=== PATIENT | female | born 1990 | race Caucasian/White ===

== ENCOUNTER 2017-02-20 17:25 | Outpatient (CLI) | payer MEDICAID ==
[~2017-02-20] VITALS: Ht 157.5 cm; Wt 62.4 kg
[~2017-02-20 17:25] MED LIST: NO MEDS
[2017-02-20 17:30] VITALS: Ht 157.5 cm; Wt 62.4 kg
[2017-02-20 17:37] VITALS: BP 112/71; PULSE 109; RESP 18
[2017-02-20] MEDS ORDERED: PRENAT PO (17:46)
[2017-02-20] MEDS ORDERED: LACTATED RINGER'S 1,000 ML IV ONE (18:00)
[2017-02-20 18:14] LABS: ADD UMIC YES; UR BILIRUBIN (Dip) 1+ (NEGATIVE); UR BLOOD (Dip) TRACE (NEGATIVE); UR CLARITY CLOUDY (CLEAR); UR COLOR YELLOW (YELLOW); UR GLUCOSE (Dip) NEGATIVE (NEGATIVE); UR KETONES (Dip) NEGATIVE (NEGATIVE); UR LEUKOCYTE ESTERASE (Dip) 3+ (NEGATIVE); UR NITRITE (Dip) NEGATIVE (NEGATIVE); UR TOTAL PROTEIN (Dip) TRACE (NEGATIVE); UR UROBILINOGEN (Dip) 4.0 E.U./dL (0.1-1.0)
--- NOTE | 2017-02-20 18:28 | RADRPT ---
PROCEDURE: OB ultrasound for biophysical profile CLINICAL INDICATION: Decreased movement. TECHNIQUE: Multiple sonographic images of the pelvis were obtained. Transabdominal view of the gr avid uterus are available for review. The images were reviewed on a PACS workstation. COMPARISON: None FINDINGS: breathing movement = 2/2 tone = 2/2 motion = 2/2 Quantitative amniotic fluid volume = 2/2 HERBIE = 15.5 cm Single live intrauterine with cardiac activity at 148 beats per minute. There is a anterior placenta without previa. IMPRESSION: 1. Single living intrauterine gestation cephalic. 2. Biophysical profile = 06/04. 3. HERBIE = 15.5 cm. RPTAT: [facility] Physician Annika Date Time Electronically viewed and signed by Burak Flood Physician on 02/20/2017 18:27 /
[2017-02-20 19:06] LABS: ICTOTEST NEGATIVE (NEGATIVE)
[2017-02-20 19:10] LABS: UR SQUAMOUS EPITHELIAL CELL MANY; URINE RBCS 0-2 /HPF (0)
[2017-02-20 20:25] LABS: ADD UMIC YES; UR BILIRUBIN (Dip) 1+ (NEGATIVE); UR BLOOD (Dip) NEGATIVE (NEGATIVE); UR CLARITY CLEAR (CLEAR); UR COLOR YELLOW (YELLOW); UR GLUCOSE (Dip) NEGATIVE (NEGATIVE); UR KETONES (Dip) 40 (NEGATIVE); UR LEUKOCYTE ESTERASE (Dip) TRACE (NEGATIVE); UR NITRITE (Dip) NEGATIVE (NEGATIVE); UR TOTAL PROTEIN (Dip) NEGATIVE (NEGATIVE); UR UROBILINOGEN (Dip) 4.0 E.U./dL (0.1-1.0)
[2017-02-20 20:42] LABS: ICTOTEST POSITIVE (NEGATIVE)
[2017-02-20 20:44] LABS: UR SQUAMOUS EPITHELIAL CELL FEW; URINE RBCS NONE SEEN /HPF (0)
[2017-02-20 20:45] LABS: UR MUCUS OCCASIONAL
--- NOTE | 2017-02-20 22:18 | TRIAGE ---
OB Triage Datetime Report Generated by CPN: 02/20/2017 22:18 Datetime: 02/20/2017 21:43 Stage of : OB Triage Datetime: 02/20/2017 20:25 Stage of : OB Triage Datetime: 02/20/2017 19:40 Stage of : OB Triage Pain Assessment Pain Scale: 0 Pain Presence: None/Denies Datetime: 02/20/2017 19:15 Stage of : OB Triage Datetime: 02/20/2017 19:00 Labor Evaluation Frequency: 3-6 Monitor Mode: External Duration (sec)2399: 90-100 Quality: Mild Pattern: Normal: <= 5 Contractions in 10 Minutes Resting Tone [place]: Relaxed Heart Rate FHR Baseline Rate: 135 Monitor Mode: External US FHR Baseline Changes: No Baseline Change Variability: Moderate 6-25 bpm Accelerations: 15X15 Decelerations: None Category: Category I Pain Assessment Pain Scale: 8 Pain Presence: Intermittent Pain Type: Cramping Pain Location: Abdomen Datetime: 02/20/2017 18:00 Labor Evaluation Frequency: 1-12 Monitor Mode: External Duration (sec)2399: 90-100 Quality: Mild Pattern: Normal: <= 5 Contractions in 10 Minutes Resting Tone [place]: Relaxed Heart Rate FHR Baseline Rate: 135 Monitor Mode: External US FHR Baseline Changes: No Baseline Change Variability: Minimal - Undetectable to <=5 bpm Accelerations: 10X10 Decelerations: Late Category: Category II Comments: 1 late noted Pain Assessment Pain Scale: 8 Pain Presence: Intermittent Pain Type: Cramping Pain Location: Abdomen Datetime: 02/20/2017 17:50 Stage of : OB Triage Datetime: 02/20/2017 17:43 Assessment Type: Triage Maternal Assessment Level of Consciousness: Fully Conscious DTR's/Clonus: DTRs 2+; No Clonus Headache: Denies Blurred Vision: No Respiratory Effort: Unlabored; Regular Rhythm; Equal Expansion Breath Sounds, Left: Clear and Equal Breath Sounds, Right: Clear and Equal Nausea/Vomiting: Hx of Nausea/Vomiting RUQ Epigastric Pain: Denies Lower Extremities Edema: None Upper Extremities Edema: None Facial Edema: None Fall Risk Assessment History of Falling: (0) No Secondary Diagnosis: (0) No Ambulatory Aid: (0) Bedrest/Nurse Assist IV Therapy: (0) No Gait: (0) Normal/Bedrest/Immobile Mental Status: (0) Oriented to Own Ability Fall Score: 0 Fall Risk Score Definition: No Risk: No action required Datetime: 02/20/2017 17:28 Time of Arrival: 02/20/2017 17:25 EGA: 36.6 Arrived By: Wheelchair Arrived From: Emergency Dept Chief Complaint: CRAMPING, ABDOMINAL PAIN, BURNING UPON URINATION, Movement: Decreased Contractions: Occasional Contractions: 1-3 Rupture of Membranes: Denies Vaginal Bleeding: None Vaginal Discharge: Present Recent Sexual Intercouse: Denies Abdominal Trauma: Not Applicable Patient Complaints: Contractions; Cramping; Back Pain; Vomiting; Pain on Urination Additional Patient Complaints: Pt states she vommited two times today, pain 8/10, back pain, urina tion since Saturday. When asked about movement pt states she has felt the baby move less today t [place] usual. Time Provider Notified: 02/20/2017 17:25 Provider Notified: Dr Steven Initial Plan: Monitor of Vitals, Heart, and Contractions/ Orders for UA, BPP, placenta posit ion, hydration. Datetime: 02/20/2017 17:27 Arrived From: Emergency Dept Vaginal Bleeding: None Vaginal Discharge: Denies Recent Sexual Intercouse: Denies
--- NOTE | 2017-02-20 23:55 | HP ---
Date/Time of Note Date/Time of Note DATE: 02/20/17 TIME: 23:54 OB - History Hx of Present Free Text/Dictation OB Triage Pt is a 26yo at 36+6 presenting with several c/o including lower abdominal and back pain, dysuria and decreased FM. Pt states all of her sxs started 3d ago except for the decreased FM which began today. Also c/o feeling occasional UCs over the last few days. Sxs are intermittent. Denies LOF or VB. PROCEDURE: OB ultrasound for biophysical profile CLINICAL INDICATION: Decreased movement. TECHNIQUE: Multiple sonographic images of the pelvis were obtained. Transabdominal view of the gravid uterus are available for review. The images were reviewed on a PACS workstation. COMPARISON: None FINDINGS: breathing movement = 2/2 tone = 2/2 motion = 2/2 Quantitative amniotic fluid volume = 2/2 HERBIE = 15.5 cm Single live intrauterine with cardiac activity at 148 beats per minute. There is a anterior placenta without previa. IMPRESSION: 1. Single living intrauterine gestation cephalic. 2. Biophysical profile = 06/04. 3. HERBIE = 15.5 cm. Estimated Due Date: March 14, 2017 : 3 Para: 2 OB Admission Exam Vital Signs Vital Signs Vital Signs Date Time Temp Pulse Resp B/P Pulse Ox O2 Delivery O2 Flow Rate FiO2 02/20/17 17:37 97.5 109 18 112/71 Room Air s/p IV hydration: BP 100/56 P 81 Physical Exam Abdomen: WNL (nontender. No CVAT bilaterally) Heart Rate: 130's Accelerations: Accelerations Present Decelerations: No Decelerations Varibility: Moderate Contractions on Admission: >10 Minutes Apart (irregular) OB Assessment/Plan Other Assessment: Reassuring FWB Repeat U/A (straight cath specimen) not suggestive of UTI Other plan: Pt appropriate for d/c home s/p improvement in sxs with IV hydration. Likely back pain and LAP 2/2 contractions given intermittent nature of sxs. Pt reassured of FWB with 06/04 BPP and reactive NST. Strict infection, labor, ROM and FKC precautions given. Pt encouraged to increase PO fluid intake. Recommend pt have UCx sent at clinic appointment. Pt to f/up on 02/22 as scheduled with primary OB provider. Questions answered to patient's satisfaction. SARAI SHARPE MD Feb 20, 2017 23:55
== END 2017-02-20 21:50 | disposition home or self-care (01) ==
LOC: OBT 17:25 → L-D 17:26 → OBT 21:50
PROVIDERS: ATTEND Obstetrics & Gynecology
DX: O26.893 Other specified pregnancy related conditions, third trimester (principal); R10.30 Lower abdominal pain, unspecified; M54.9 Dorsalgia, unspecified; O62.9 Abnormality of forces of labor, unspecified; Z3A.36 36 weeks gestation of pregnancy
CPT/HCPCS: 36415; 76818; 81001; 96360; 96361; J7120; P9612; Z7500; 81003; A4310; G0463

== ENCOUNTER 2017-02-22 17:36 | Inpatient (IN) | payer MEDICAID ==
[~2017-02-22] VITALS: Ht 157.5 cm; Wt 63.4 kg
[~2017-02-22 17:36] MED LIST changes: -NO MEDS; +PRENAT PO
[2017-02-22] MEDS ORDERED: LACTATED RINGER'S 1,000 ML IV ONE (19:00)
[2017-02-22] MEDS ORDERED: DEXTROSE 5%-LR 1,000 ML IV SCH (20:00)
[2017-02-22 20:38] VITALS: BP 115/64; PULSE 74; RESP 18; Ht 157.5 cm; Wt 63.4 kg
--- NOTE | 2017-02-22 21:28 | RADRPT ---
PROCEDURE: US OB. CLINICAL INDICATION: labor TECHNIQUE: Pelvic ultrasound performed for biophysical profile. COMPARISON: 02/20/2017 FINDINGS: Single intrauterine gestation present with heart rate at 139 beats per minute. Presentation is ceph alic. Placenta is anterior, grade II. Biophysical profile score is 8/8 (breathing=2, movement=2, t one =2, fluid volume=2). Amniotic fluid volume is within normal limits, with HERBIE = 6.92 cm. RPTAT:HJJR IMPRESSION: 1. Biophysical profile score 8/8 unchanged from 02/20/2017. 2. Interval decrease in amniotic fluid index from 15.5 cm on the study of 02/20/2017 to a current es timation of 6.9 cm. Physician Иван Date Time Electronically viewed and signed by Physician Иван on 02/22/2017 21:28 /
[2017-02-22] MEDS ORDERED: CEFAZOLIN 2 GM/50 ML (PMX) 50 ML IV SCH (21:30)
[2017-02-22] MEDS ORDERED: OXYTOCIN 30 UNITS/LR 500 ML IV SCH (21:30)
[2017-02-22] MEDS ORDERED: METHYLERGONOVINE 0.2 MG INJ IM PRN (21:30)
[2017-02-22] MEDS ORDERED: OXYTOCIN 30 UNITS/LR 500 ML IV PRN (21:30)
[2017-02-22] MEDS ORDERED: CARBOPROST 250 MCG INJ IM PRN (21:30)
[2017-02-22] MEDS ORDERED: MISOPROSTOL 200 MCG TAB PR PRN (21:30)
[2017-02-22] MEDS ORDERED: FENTAnyl 50 MCG/ML VIAL ONE ×2 (21:36→22:01)
[2017-02-22] MEDS ORDERED: METHYLERGONOVINE 0.2 MG INJ ONE (21:37)
[2017-02-22] MEDS ORDERED: LACTATED RINGER'S 1,000 ML IV SCH (21:42)
[2017-02-22] MEDS ORDERED: PHENYLephrine (100 MCG/ML) 5ML SYG ONE (21:45)
[2017-02-22] MEDS ORDERED: PROPOFOL 20 ML ONE (21:45)
[2017-02-22] MEDS ORDERED: SUCCINYLCHOLINE CHLORIDE 100 MG/5 ML SYG IV ONE (21:45)
--- NOTE | 2017-02-22 21:57 | TRIAGE ---
OB Triage Datetime Report Generated by CPN: 02/22/2017 21:56 Datetime: 02/22/2017 19:10 Stage of : OB Triage Datetime: 02/22/2017 18:41 Dilatation (cms): 1.0 Effacement (%): 40 Station: -3 Exam By: SS Datetime: 02/22/2017 18:30 Frequency: 2-5 Monitor Mode: External Duration (sec)2399: 50-80 Quality: Moderate Pattern: Normal: <= 5 Contractions in 10 Minutes Resting Tone [place]: Relaxed FHR Baseline Rate: 135 Monitor Mode: External US FHR Baseline Changes: No Baseline Change Variability: Moderate 6-25 bpm Accelerations: 15X15 Decelerations: Prolonged Category: Category II Datetime: 02/22/2017 18:27 Pain Assessment Comments: DR CARTER AT BEDSIDE, STRIPE REVIEWED ORDERS RECEIVED TO START IV HYDRAT ION Datetime: 02/22/2017 17:51 Stage of : OB Triage Assessment Type: Triage Level of Consciousness: Fully Conscious DTR's/Clonus: DTRs 2+ Headache: Denies Blurred Vision: No Respiratory Effort: Unlabored Breath Sounds, Left: Clear and Equal Breath Sounds, Right: Clear and Equal Nausea/Vomiting: Denies RUQ Epigastric Pain: Denies Lower Extremities Edema: None Upper Extremities Edema: None Facial Edema: None Temperature Route: Oral History of Falling: (0) No Secondary Diagnosis: (0) No IV Therapy: (0) No Pain Scale: 8 Pain Presence: Intermittent Pain Type: Contraction Pain Location: Abdomen; Back Pain Goal: 4 Membrane Status: Intact Datetime: 02/22/2017 17:46 Time of Arrival: 02/22/2017 17:46 EGA: 37.1 Arrived By: Ambulatory Arrived From: Home Chief Complaint: PT STATING SHE HAS BEEN HAVING CONTRACTIONS SINCE 0500 Movement: Present Contractions: Irregular Time Contractions Began: 02/22/2017 05:00 Rupture of Membranes: Denies Vaginal Discharge: Denies Recent Sexual Intercouse: Denies Abdominal Trauma: Not Applicable Patient Complaints: Contractions Time Provider Notified: 02/22/2017 18:30 Provider Notified: DR CARTER Initial Plan: NST, IV HYDRATION Datetime: 02/20/2017 17:43 Fall Score: 0 Fall Risk Score Definition: No Risk: No action required Datetime: 02/20/2017 17:28 EGA: 36.6
[2017-02-22 22:01] LABS: ADD SCAN DIFF NO
[2017-02-22] MEDS ORDERED: ROPIVACAINE 0.5 % 30 ML VIAL ONE (22:01)
[2017-02-22 22:04] LABS: BASOPHILS % 0.1 % (0.0-2.0); EOSINOPHILS # 0.1 10^3/ul (0.0-0.5); EOSINOPHILS % 0.4 % (0.0-7.0); HEMATOCRIT 35.2 % (37.0-47.0); HEMOGLOBIN 11.3 g/dl (12.0-16.0); LYMPHOCYTES # 1.6 10^3/ul (0.8-2.9); LYMPHOCYTES % 14.7 % (15.0-51.0); MEAN CORPUSCULAR HEMOGLOBIN 27.6 pg (29.0-33.0); MEAN CORPUSCULAR HGB CONC 32.1 g/dl (32.0-37.0); MEAN CORPUSCULAR VOLUME 85.9 fl (82.0-101.0); MEAN PLATELET VOLUME 9.4 fl (7.4-10.4); MONOCYTE # 0.7 10^3/ul (0.3-0.9); MONOCYTES % 6.6 % (0.0-11.0); NEUTROPHIL # 8.7 10^3/ul (1.6-7.5); NEUTROPHILS % 77.7 % (39.0-77.0); PLATELET COUNT 351 10^3/UL (140-415); RED CELL DISTRIBUTION WIDTH 14.6 % (11.5-14.5); WHITE BLOOD COUNT 11.1 10^3/ul (4.8-10.8)
[2017-02-22 22:16] LABS: INR 0.86; PROTIME 11.7 Sec (12.2-14.2); PT RATIO 0.9
--- NOTE | 2017-02-22 22:16 | OPR ---
Operative Report Planned Procedure Free Text/Dictation @37+wks GA with Cathegory 3 tracing Prolonged Bradycardia with No recovery Procedure date Feb 22, 2017 Procedure(s) Primary c/section Performed by: MICHELLE YEH M.D. Pre-procedure diagnosis @37+wks GA with Cathegory 3 tracing Prolonged Bradycardia with No recovery Anesthesia Type: spinal Procedure Description Under satisfactory [] anesthesia, the patient was prepped and draped and placed in a supine position, tilted to the left. Pfannenstiel incision was made, carried through the subcutaneous tissue. Bleeders brought under control with electrocautery. Fascia incised to the length of the incision. Rectus muscles from the fascia, divided midline. Peritoneum exposed, entered through a transverse incision. Exploration of abdomen revealed gravid uterus. Bladder flap was developed. Transverse incision was made in the lower segment of the uterus. Amniotic sac ruptured. [] amniotic fluid noted. [] Nasal oropharyngeal suction was performed. The baby was handed to the team for immediate attention. The placenta was delivered manually intact. Uterine cavity was cleaned with wet sponge and drainage established. Uterus closed in 2 layers using [] in continuous fashion. Peritoneal cavity irrigated with warm saline. Sponge, needle and instrument count reported to be correct. Abdominal peritoneum closed with [] continuously. Rectus muscle approximated with []. Fascia closed with [], and skin closed with dermoband. Estimated blood loss [600 ]mL. Urine bag contained []mL of urine Thick meconium Post-Procedure Findings: Live Baby [], Apgars [] and [], weight [], position [], [] presentation []cord. Specimen removed: Yes Complications: None Pt Condition post procedure: stable Disposition: PACU Physician Certification I, the undersigned physician, hereby certify that I have discussed the procedure described in this consent form with this patient (or the patient's legal compliance representative), including: * The risk and benefits of the procedure; * Any adverse reactions that may reasonably be expected to occur; * Any alternative efficacious methods of treatment which may be medically viable ; * The potential problems that may occur during recuperation; * Potential for blood transfusion and associated risks/benefits; and * Any research or economic interest I may have regarding this treatment. I further certify that the patient/legally responsible person was encouraged to ask question and that all questions were answered. MICHELLE YEH M.D. Feb 22, 2017 22:16
[2017-02-22 22:17] LABS: PARTIAL THROMBOPLASTIN TIME 28.7 Sec (25.0-35.0)
--- NOTE | 2017-02-22 22:19 | HP ---
Date/Time of Note Date/Time of Note DATE: 02/22/17 TIME: 22:17 OB - History Hx of Present Free Text/Dictation @37+wks GA with Cathegory 3 tracing Prolonged Bradycardia with No recovery : 3 Para: 1 Care: Good Care Ultrasounds: Normal mid trimester US Obstetrical Complications: None Medical Complications: None Past Family/Social History * Past Medical, Surgical, Family and Obstetric Histories reviewed from chart. 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 Feb 22, 2017 22:19
[2017-02-22] MEDS ORDERED: HYDROmorphONE (0.2 MG/ML) 10ML SYG IV PRN ×2 (22:30)
[2017-02-22] MEDS ORDERED: KETOROLAC 30 MG INJ IV ONE (22:30)
[2017-02-22] MEDS ORDERED: METOCLOPRAMIDE 10 MG INJ IV PRN (22:30)
[2017-02-22] MEDS ORDERED: DIPHENHYDRAMINE 50 MG INJ IV PRN (22:30)
[2017-02-22] MEDS ORDERED: MEPERIDINE 25 MG INJ IV PRN (22:30)
[2017-02-22] MEDS ORDERED: ONDANSETRON 4 MG INJ IV PRN (22:30)
[2017-02-22] MEDS ORDERED: FENTAnyl 50 MCG/ML VIAL IV PRN ×2 (22:30)
[2017-02-22] MEDS ORDERED: LEVALBUTEROL (NEB) 0.63 MG/3 ML AMP HHN ONE (22:30)
[2017-02-22] MEDS: HYDROmorphONE (0.2 MG/ML) 10ML SYG IV PRN ×4 (22:47→23:09)
[2017-02-22] MEDS ORDERED: HYDROmorphONE 0.2 MG/ML PCA IV SCH (23:00)
--- NOTE | 2017-02-22 23:05 | HP ---
Date/Time of Note Date/Time of Note DATE: 02/22/17 TIME: 23:04 OB - History Hx of Present Free Text/Dictation @34+wks GA with Spotting and Ctxs : 1 Para: 0 Care: Good Care Ultrasounds: Normal mid trimester US Obstetrical Complications: None Medical Complications: None Past Family/Social History * Past Medical, Surgical, Family and Obstetric Histories reviewed from chart. OB Admission Exam Vital Signs Vital Signs Vital Signs Date Time Temp Pulse Resp B/P Pulse Ox O2 Delivery O2 Flow Rate FiO2 02/22/17 20:38 97.7 74 18 115/64 98 Non Rebreather 10.0 Physical Exam Abdomen: WNL Reflexes: Normal Cervical Dilatation: Fingertip Effacement: 0% Station: -3 Membranes: Intact Heart Rate: 140's Accelerations: Accelerations Present Decelerations: No Decelerations Varibility: Moderate Contractions on Admission: 6-10 Minutes Apart Last 72 hours Lab Results CBC & BMP 02/22/17 18:40 OB Assessment/Plan Reason for admission: observation Plan: Expectant Management Other plan: Steroids IV Hydration MICHELLE YEH M.D. Feb 22, 2017 23:05
[2017-02-23] VITALS (8 sets, daily range): BP systolic 102–115; BP diastolic 65–77; PULSE 63–76; RESP 14–18
[2017-02-23] MEDS ORDERED: METHYLERGONOVINE 0.2 MG INJ IM PRN (02:30)
[2017-02-23] MEDS ORDERED: MISOPROSTOL 200 MCG TAB PR PRN (02:30)
[2017-02-23] MEDS ORDERED: OXYTOCIN 30 UNITS/LR 500 ML IV PRN (02:30)
[2017-02-23] MEDS ORDERED: CARBOPROST 250 MCG INJ IM PRN (02:30)
[2017-02-23] MEDS ORDERED: LANOLIN 7 GM TUBE TOP PRN (02:30)
[2017-02-23] MEDS: LACTATED RINGER'S 1,000 ML IV SCH ×2 (02:35→11:17)
[2017-02-23] MEDS ORDERED: DIPHENHYDRAMINE 50 MG INJ ONE (03:46)
[2017-02-23] MEDS ORDERED: DIPHENHYDRAMINE 50 MG INJ IV ONE (05:00)
[2017-02-23] MEDS: CEFAZOLIN 2 GM/50 ML (PMX) 50 ML IV SCH ×3 (05:39→21:14)
[2017-02-23] MEDS: IBUPROFEN 600 MG TAB PO SCH ×4 (05:40→23:53)
[2017-02-23 07:36] LABS: ADD SCAN DIFF NO
[2017-02-23 07:39] LABS: BASOPHILS % 0.1 % (0.0-2.0); EOSINOPHILS % 0.2 % (0.0-7.0); HEMATOCRIT 31.5 % (37.0-47.0); HEMOGLOBIN 10.1 g/dl (12.0-16.0); LYMPHOCYTES # 1.2 10^3/ul (0.8-2.9); LYMPHOCYTES % 8.1 % (15.0-51.0); MEAN CORPUSCULAR HEMOGLOBIN 27.4 pg (29.0-33.0); MEAN CORPUSCULAR HGB CONC 32.1 g/dl (32.0-37.0); MEAN CORPUSCULAR VOLUME 85.4 fl (82.0-101.0); MEAN PLATELET VOLUME 9.4 fl (7.4-10.4); MONOCYTE # 0.7 10^3/ul (0.3-0.9); NEUTROPHIL # 12.8 10^3/ul (1.6-7.5); NEUTROPHILS % 86.3 % (39.0-77.0); PLATELET COUNT 257 10^3/UL (140-415); RED BLOOD COUNT 3.69 10^6/ul (4.20-5.40); RED CELL DISTRIBUTION WIDTH 14.6 % (11.5-14.5); WHITE BLOOD COUNT 14.8 10^3/ul (4.8-10.8)
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
--- NOTE | 2017-02-23 10:22 | PN ---
Date/Time of Note Date/Time of Note DATE: 02/23/17 TIME: 10:21 OB Subjective Subjective Subjective Post day 1 Afebrile vital signs stable abdomen soft mildly distended bowel sounds present incision dry lochia moderate extremity normal ambulation encouraged RITA CARTER MD Feb 23, 2017 10:22
[2017-02-23] MEDS: SENNA/DOCUSATE NA (8.6MG/50MG) TAB PO SCH ×2 (11:17→21:13)
[2017-02-23] MEDS: OXYCODONE/ACETAMINOPHEN (5/325) TAB PO PRN ×2 (13:26→22:25)
[2017-02-24] MEDS: OXYCODONE/ACETAMINOPHEN (5/325) TAB PO PRN (02:12)
[2017-02-24 05:00] VITALS: BP 100/55; PULSE 69; RESP 18
[2017-02-24] MEDS: IBUPROFEN 600 MG TAB PO SCH ×3 (05:32→17:17)
[2017-02-24 09:10] VITALS: BP 104/70; PULSE 73; RESP 18
[2017-02-24] MEDS: SENNA/DOCUSATE NA (8.6MG/50MG) TAB PO SCH ×2 (09:41→21:54)
[2017-02-24] MEDS ORDERED: NA PHOSPHATE/BIPHOS 133 ML ENEMA PR ONE (15:30)
--- NOTE | 2017-02-24 15:56 | PN ---
Date/Time of Note Date/Time of Note DATE: 02/24/17 TIME: 15:54 OB Subjective Subjective Subjective Post day 2 Afebrile VSs stable abdomen soft incision dry , good bowel sounds no bowel movement enema recommended extremities normal. Current Medications Medications (Trade) Dose Ordered Sig/Shayan Route PRN Reason Start Time Stop Time Status Last Admin Dose Admin Lactated Ringer's 1,000 ml @ 1,000 mls/hr Q1H ONCE IV 02/22/17 19:00 02/22/17 19:54 DC 02/22/17 18:59 Dextrose/Lactated Ringer's (D5-Lr) 1,000 ml @ 125 mls/hr Q8H IV 02/22/17 20:00 02/23/17 02:14 DC 02/22/17 20:01 Fentanyl (Sublimaze) 100 mcg STK-MED ONCE .ROUTE 02/22/17 21:36 02/22/17 21:37 DC Methylergonovine Maleate 0.2 mg 0.2 mg STK-MED ONCE .ROUTE 02/22/17 21:37 02/22/17 21:38 DC Cefazolin Sodium/ Dextrose 50 ml @ 100 mls/hr ONCE IV 02/22/17 21:30 02/23/17 02:14 DC Oxytocin/Lactated Ringer's 500 ml @ 125 mls/hr ONCE IV 02/22/17 21:30 02/23/17 02:14 DC 02/22/17 22:36 Oxytocin/Lactated Ringer's 500 ml @ 0 mls/hr ONCE PRN IV For Hemorrhage Management 02/22/17 21:30 02/23/17 02:14 DC Methylergonovine Maleate (Methergine) 0.2 mg ONCE PRN IM VAGINAL BLEEDING 02/22/17 21:30 02/23/17 02:14 DC Carboprost Tromethamine (Hemabate) 250 mcg ONCE PRN IM VAGINAL BLEEDING 02/22/17 21:30 02/23/17 02:14 DC Misoprostol 1000 mcg 1,000 mcg ONCE PRN DE VAGINAL BLEEDING 02/22/17 21:30 02/23/17 02:14 DC Lactated Ringer's (Lr) 1,000 ml @ 125 mls/hr Q8H IV 02/22/17 21:42 02/23/17 02:14 DC Phenylephrine HCl 500 mcg 500 mcg STK-MED ONCE .ROUTE 02/22/17 21:45 02/22/17 21:46 DC Propofol (Diprivan) 20 ml @ ud STK-MED ONCE .ROUTE 02/22/17 21:45 02/22/17 21:46 DC Succinylcholine Chloride (Anectine Syringe) 100 mg STK-MED ONCE IV 02/22/17 21:45 02/22/17 21:46 DC Ropivacaine (Naropin 0.5%) 30 ml STK-MED ONCE .ROUTE 02/22/17 22:01 02/22/17 22:02 DC Fentanyl (Sublimaze) 100 mcg STK-MED ONCE .ROUTE 02/22/17 22:01 02/22/17 22:02 DC Hydromorphone HCl (Dilaudid (Rec)) 0.2 mg PACU ORDER PRN IV MILD PAIN LEVEL 1-3 02/22/17 22:30 02/23/17 02:14 DC Hydromorphone HCl (Dilaudid (Rec)) 0.4 mg PACU ORDER PRN IV MODERATE PAIN LEVEL 4-6 02/22/17 22:30 02/23/17 02:14 DC Hydromorphone HCl (Dilaudid (Rec)) 0.6 mg PACU ORDER PRN IV SEVERE PAIN LEVEL 7-10 02/22/17 22:30 02/23/17 02:14 DC 02/22/17 23:09 Fentanyl (Sublimaze) 25 mcg PACU ORDER PRN IV MILD PAIN LEVEL 1-3 02/22/17 22:30 02/23/17 02:14 DC Fentanyl (Sublimaze) 50 mcg PACU ODER PRN IV MODERATE PAIN LEVEL 4-6 02/22/17 22:30 02/23/17 02:14 DC Ketorolac Tromethamine (Toradol) 30 mg PACU ORDER ONCE IV 02/22/17 22:30 02/22/17 22:43 DC Ondansetron HCl (Zofran Inj) 4 mg PACU ORDER PRN IV NAUSEA AND/OR VOMITING 02/22/17 22:30 02/23/17 03:00 DC Metoclopramide HCl (Reglan) 10 mg PACU ORDER PRN IV NAUSEA AND/OR VOMITING 02/22/17 22:30 02/23/17 02:14 DC Levalbuterol (Xopenex Neb) 0.63 mg PACU ORDER ONCE HHN 02/22/17 22:30 02/22/17 22:43 DC Meperidine HCl (Demerol) 25 mg PACU ORDER PRN IV POST-OP RIGORS 02/22/17 22:30 02/23/17 02:14 DC 02/22/17 23:34 Diphenhydramine HCl (Benadryl) 25 mg PACU ORDER PRN IV PRURITUS 02/22/17 22:30 02/23/17 03:00 DC Hydromorphone HCl 6 mg 6 mg Q4PCA IV 02/22/17 23:00 02/24/17 11:22 DC 02/22/17 23:17 Lactated Ringer's 1,000 ml @ 125 mls/hr Q8H IV 02/23/17 02:07 02/24/17 11:22 DC 02/23/17 11:17 Cefazolin Sodium/ Dextrose (Ancef 2 Gm/50 ml (Pmx)) 50 ml @ 100 mls/hr Q8H IV 02/23/17 02:30 02/23/17 18:59 DC 02/23/17 21:14 Oxycodone/ Acetaminophen (Percocet (5/ 325)) 2 tab Q4H PRN PO PAIN LEVEL 7-10 02/23/17 02:30 02/24/17 02:12 Ibuprofen (Motrin) 600 mg Q6 PO 02/23/17 06:00 02/24/17 12:24 Simethicone (Mylicon) 160 mg Q8H PRN PO DISTENSION/GAS/BLOATING 02/23/17 02:30 02/24/17 10:33 Senna/Docusate Sodium (Senokot-S) 1 tab BID PO 02/23/17 09:00 02/24/17 09:41 Lanolin (Rai-O-Ohmdxb) 1 applic BEDSIDE MEDICATION PRN TOP BEDSIDE FOR MICHELE TO NIPPLES 02/23/17 02:30 Diphtheria/ Tetanus/Acell Pertussis 0.5 ml 0.5 ml ONCE ONCE IM* 02/25/17 09:00 02/25/17 09:01 Oxytocin/Lactated Ringer's 500 ml @ 0 mls/hr ONCE PRN IV For Hemorrhage Management 02/23/17 02:30 Methylergonovine Maleate (Methergine) 0.2 mg ONCE PRN IM VAGINAL BLEEDING 02/23/17 02:30 Carboprost Tromethamine (Hemabate) 250 mcg ONCE PRN IM VAGINAL BLEEDING 02/23/17 02:30 Misoprostol (Cytotec) 1,000 mcg ONCE PRN DE VAGINAL BLEEDING 02/23/17 02:30 Diphenhydramine HCl (Benadryl) 50 mg STK-MED ONCE .ROUTE 02/23/17 03:46 02/23/17 03:47 DC Diphenhydramine HCl (Benadryl) 25 mg ONCE ONCE IV 02/23/17 05:00 02/23/17 05:01 DC Sodium Biphosphate/ Sodium Phosphate (Fleet Enema) 133 ml ONCE ONCE DE 02/24/17 15:30 02/24/17 15:31 DC RITA CARTER MD Feb 24, 2017 15:55
[2017-02-24 16:00] VITALS: BP 106/58; PULSE 81; RESP 18
[2017-02-24 20:00] VITALS: BP 120/75; PULSE 80; RESP 18
[2017-02-25 04:00] VITALS: BP 114/60; PULSE 69; RESP 18
[2017-02-25] MEDS: IBUPROFEN 600 MG TAB PO SCH ×3 (07:18→11:45)
[2017-02-25 07:50] VITALS: BP 115/82; PULSE 55; RESP 18
[2017-02-25] MEDS ORDERED: DIPHTH/TET/ACEL PERTUSS (ADULT) 0.5 ML VIAL IM* ONE (09:00)
[2017-02-25] MEDS: SENNA/DOCUSATE NA (8.6MG/50MG) TAB PO SCH (09:24)
--- NOTE | 2017-02-25 10:31 | DS ---
Date/Time of Note Date/Time of Note DATE: 02/25/17 TIME: 10:28 Discharge Summary Admission/Discharge Info Admit Date/Time Feb 22, 2017 at 21:25 Discharge Date/Time February 25, 2017 Final Diagnosis at 37 weeks nonreassuring heart tracing primary Patient Condition: Good Procedures Primary Hx of Present Illness at 37 weeks nonreassuring heart tracing, primary Hospital Course Uneventful satisfactory Home Meds Reported Medications Multivit/Min/Fol Ac/Iron/Pren* ( S*) 1 Tab Tab, 1 TAB PO DAILY, TAB 02/20/17 Discontinued Reported Medications [No Meds] No Conflict Check 12/06/12 Follow-up Plan Recommended follow-up appointment at the office in 4 days RITA CARTER MD February 25, 2017 10:31
--- NOTE | 2017-02-25 10:32 | PD.PPDC ---
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
[2017-02-25 16:15] VITALS: BP 116/72; PULSE 60; RESP 18
== END 2017-02-25 17:15 | disposition home or self-care (01) | DRG 766 ==
LOC: OBT 17:36 → L-D 17:37 → OBT 21:25 → L-D 21:35 → PP1 02-23 02:10
PROVIDERS: ADMIT Obstetrics & Gynecology; ATTEND Obstetrics & Gynecology
PROC: 10D00Z1 Extraction of Products of Conception, Low, Open Approach (ICD-10-PCS; principal; 2017-02-22)
DX: O76 Abnormality in fetal heart rate and rhythm complicating labor and delivery (principal); Z37.0 Single live birth; Z3A.37 37 weeks gestation of pregnancy
CPT/HCPCS: 76818; 85025; 85610; 85730; 86592; 86850; 86900; 86901; 88307; 90715; 96360; 96361; 99464; G0463; J0330; J0690; J1170; J1200; J2175; J2210; J2370; J2590; J2795; J3010; J7120; J7121

== ENCOUNTER 2018-02-27 05:29 | Emergency (ER) | END 2018-02-27 07:42 | disposition home or self-care (01) ==